=== PATIENT | female | born 1970 | race Asian ===

== ENCOUNTER 2017-08-04 00:37 | Emergency (ER) | payer OTHER, SELFPAY ==
[2017-08-04 00:47] VITALS: BP 131/88; PULSE 70; RESP 16; TEMP 36.4; O2SAT 99; BMI 23.6
--- NOTE | 2017-08-04 00:56 | ED.WOUNDLAC ---
HPI - Wound/Laceration General Chief Complaint: Wound/Laceration Stated Complaint: right hand swelling infected blister Time Seen by Provider: 08/04/17 00:42 Source: patient Mode of arrival: ambulatory Limitations: no limitations History of Present Illness HPI narrative: 47-year-old female here for evaluation of possible infection on her hand. Patient states that she had a wart on the dorsum of her right hand and used a [id number] salicylic acid preparation. She states that afterwards a blister formed. She states that blister that popped and then this evening at approximately 10 o'clock she noticed that the area around the blister was read and unit started to streak upper arm. Related Data Previous Rx's Medication Instructions Recorded doxycycline hyclate 100 mg PO BID 7 Days #14 tab 08/04/17 Allergies Allergy/AdvReac Type Severity Reaction Status Date / Time No Known Drug Allergies Allergy Verified 08/04/17 00:58 Review of Systems Musculoskeletal Comments: No right hand right wrist right elbow pain Integumentary/Breasts Comments: Blistering on the back of the right hand with streaking up the arm Neurologic Comments: No sensation changes to the right upper extremity Hematologic/Lymphatic Denies easy bruising Allergic/Immunologic Denies urticaria PFSH Social History Smoking Status: Never smoker Exam Initial Vital Signs Initial Vital Signs: Vital Signs Temperature 97.5 F L 08/04/17 00:47 Pulse Rate 70 08/04/17 00:47 Respiratory Rate 16 08/04/17 00:47 Blood Pressure 131/88 H 08/04/17 00:47 Pulse Oximetry 99 08/04/17 00:47 Cardio Pulses: radial pulses present on the right Skin Other: Patient with a approximately 1 cm round blister on the dorsum of the right hand over the MCP joint of the ring finger. Patient with a 5 cm area of redness surrounding this with streaking that extends up the arm to just proximal to the elbow. Neuro General: moves all extremities and no focal motor deficits Sensory Exam: no sensory deficits noted Extrem General: capillary refill normal Course Orders Ordered: Discontinued Medications Doxycycline Hyclate (Vibramycin) 100 mg PO NOW ONE Stop: 08/04/17 00:57 Last Admin: 08/04/17 01:00 Dose: 100 mg Vital Signs - 8 hr 08/04/17 00:47 Temperature 97.5 F L Pulse Rate 70 Respiratory Rate 16 Blood Pressure 131/88 H Pulse Oximetry 99 MDM - Wound/Laceration MDM Narrative Medical decision making narrative: Patient is not toxic appearing. Neurovascularly intact. Does have physical exam is concerning for cellulitis that is started to streak up her arm. The patient denies any allergies to medicines. Physical exam is not consistent with an abscess currently. Patient was given an oral dose of doxycycline here in the emergency department and a prescription for doxycycline to start taking tomorrow. The area of redness was outlined with a skin marker. Patient was informed that if it started to extend past this that she needed to return to the emergency department. Her was at bedside for the discussion. They both expressed understanding and agreement with plan. Discharge Plan Departure Patient Disposition: Home, Self-Care Clinical Impression: Cellulitis Discharge Date/Time: 08/04/17 01:08 Interventions: ED Discharge Assessment Last Done: 08/04/17 01:07 Instructions: DI for Cellulitis -- Adult Activity Restrictions/Additional Instructions: Take all the medications as directed. You can wash your hand like normal using soap and water. Recommend that you do not soak your hand and anything until the wound is healed. If the redness starts to expand outside of the markings that we made here in the emergency department you do need to return for further evaluation. Call your primary doctor for a follow-up Prescriptions: New doxycycline hyclate 100 mg tablet 100 mg PO BID 7 Days Qty: 14 RF: 0
[2017-08-04] MEDS: DOXYCYCLINE HYCLATE 100 MG TABLET PO (01:00)
--- NOTE | 2017-08-04 01:02 | PC.NURSE ---
Pt reports she had a wart on right 4th knuckle. Open wound, small amt bleeding. Area reddened and swollen, red streak extending up arm to elbow. Margins marked by Dr. Hernandez
== END 2017-08-04 01:08 | disposition home or self-care (01) ==
PROVIDERS: Emergency Provider Emergency Medicine
DX: L03.113 Cellulitis of right upper limb (principal)
CPT/HCPCS: 99283

== ENCOUNTER 2018-03-13 11:21 | Emergency (ER) | payer OTHER, SELFPAY ==
[2018-03-13 11:27] VITALS: PULSE 69; RESP 16; TEMP 36.8; O2SAT 100; BMI 22.6
[2018-03-13 12:00] VITALS: BP 133/81; PULSE 95; RESP 16
--- NOTE | 2018-03-13 12:07 | DI.RAD.S_ITS ---
PROCEDURE: XR CHEST 1V INDICATIONS: chest pain TECHNIQUE: One view of the chest was acquired. COMPARISON: [facility], , CHEST 1 VIEW, 06/28/2015, 13:39. FINDINGS: Surgical changes and devices: None. Lungs and pleura: No pleural effusions or pneumothorax. Lungs are clear. Previously seen rounded nodule at the right lung base has resolved. A nipple shadow overlying the left base appears to be present. Mediastinum: Mediastinal contours appear normal. Heart size is normal. Bones and chest wall: No suspicious bony lesions. Overlying soft tissues appear unremarkable. IMPRESSION: Negative chest. No acute cardiopulmonary process is evident. Dictated by: Alex Wang M.D. on 03/13/2018 at 11:25 Approved by: lAex Wang M.D. on 03/13/2018 at 11:29
[2018-03-13 12:13] LABS: Add Manual Diff / Slide Review NO; Basophils Absolute Auto 0 /uL (0-100); Basophils Percent Auto 0.7 % (0-2); Eosinophils Absolute Auto 200 /uL (0-450); Eosinophils Percent Auto 3.3 % (2-4); Hematocrit 35.3 % (36-46); Hemoglobin 11.2 g/dL (12.0-16.0); Lymphocytes Absolute Auto 1500 /uL (1100-4500); Lymphocytes Percent Auto 28.3 % (25-40); Mean Corpuscular HGB Conc 31.7 % (30-36); Mean Corpuscular Hemoglobin 24.5 PG (26-34); Mean Corpuscular Volume 77.2 fL (80-100); Monocytes Absolute Auto 500 /uL (0-900); Monocytes Percent Auto 9.1 % (3-14); Neutrophils Absolute Auto 3200 /uL (1500-7000); Neutrophils Percent Auto 58.6 % (50-75); Platelet Count 217 X10^3/uL (150-400); Red Blood Cell Count 4.57 X10^6/uL (4.0-5.2); Red Cell Distribution Width 16.6 % (11.6-14.8); White Blood Cell Count 5.4 X10^3/uL (4.5-11.0)
[2018-03-13 12:18] LABS: D Dimer 277 ng/mL (<230)
[2018-03-13 12:20] LABS: Alanine Aminotransferase 23 IU/L (9-52); Albumin 4.3 g/dL (3.5-5.0); Albumin Globulin Ratio 1.4 (1.0-2.8); Alkaline Phosphatase 57 U/L (38-126); Aspartate Aminotransferase 15 IU/L (14-36); Bilirubin Total 0.3 mg/dL (0.2-1.3); Blood Urea Nitrogen 8 mg/dL (7-17); Calcium 9.2 mg/dL (8.4-10.2); Carbon Dioxide 27 mmol/L (22-32); Chloride 103 mmol/L (98-107); Creatine Kinase 42 U/L (30-135); Estimated Glomerular Filt Rate > 60.0 mL/min (>60); Globulin 3.1 g/dL (1.7-4.1); Glucose 87 mg/dL (70-100); HEMOLYSIS < 15 (0-50); Lipase 68 U/L (23-300); Sodium 138 mmol/L (137-145); Total Protein 7.4 g/dL (6.3-8.2)
--- NOTE | 2018-03-13 12:28 | ED.CHESTPAIN ---
HPI - Chest Pain <Cande Knowles PA-C - Last Filed: 03/13/18 21:21> General Chief Complaint: Chest Pain Stated Complaint: chest pain Time Seen by Provider: 03/13/18 11:27 Source: patient and family Mode of arrival: ambulatory Limitations: no limitations History of Present Illness HPI narrative: This 48-year-old female comes to ED due to 5 day history of chest pain. She states that her was seen here that day and transferred to [facility] after having a 2nd UT. She thinks it started while she was here, but pain has not been so bothersome that she can't ignore it. She states that pain has been waxing and waning, last for 20 min, then seems to resolve on its own. She states pain does not keep her from sleep. She is always active, and pain does not keep her from activity, no worse with activity. She has a history of reflux and did try Zantac which did not help. She thinks that a warm bath did help somewhat. She came in today because the pain has been more constant, states it was more severe earlier, now significantly improved but still there. She states that the pain is in the middle of her chest, sometimes she can feel it in her back or shoulder area, points more to the right side. She denies any recent illness, cough, dyspnea. She has had minimal nausea today, no vomiting. She has not had any new pain or swelling in her extremities. She has never been a smoker. She did take a long car trip back from [place] but returned almost 2 weeks ago and did not have any symptoms in the interim. She does not have any history blood clots nor family history. She denies possibility of . She denies any other exacerbating or alleviating features for pain aside from the hot bath helping. Related Data Allergies Allergy/AdvReac Type Severity Reaction Status Date / Time No Known Drug Allergies Allergy Verified 03/13/18 11:26 Exam <Cande Knowles PA-C - Last Filed: 03/13/18 21:21> Narrative Exam Narrative: GENERAL APPEARANCE: Patient sitting comfortably, in no distress. HEENT: PERRL, EOMI, normal oropharynx NECK/THYROID: Neck supple, no JVD. LUNGS: Clear to auscultation bilaterally. CHEST: No tenderness to palpation over the chest wall or sternum HEART: Regular rate and rhythm without murmur, normal S1, S2, no S3 or S4. ABDOMEN: Soft, NT, ND, + BS x 4 quadrants EXTREMITIES: No edema. No calf tenderness NEUROLOGIC: Alert and oriented, normal speech and coordination. Initial Vital Signs Initial Vital Signs: Vital Signs Temperature 98.2 F 03/13/18 11:27 Pulse Rate 69 03/13/18 11:27 Respiratory Rate 16 03/13/18 11:27 Pulse Oximetry 100 03/13/18 11:27 <Matthew Ford DO - Last Filed: 03/14/18 08:23> Initial Vital Signs Initial Vital Signs: Vital Signs Temperature 98.2 F 03/13/18 11:27 Pulse Rate 69 03/13/18 11:27 Respiratory Rate 16 03/13/18 11:27 Pulse Oximetry 100 03/13/18 11:27 Course <Cande Knowles PA-C - Last Filed: 03/13/18 21:21> Additional Information: The patient is feeling improved after GI cocktail. She has not had recurrent significant chest pain while here and this had already improved but was still present at the time I saw her. Pain is atypical for cardiac pain. Reviewed findings with attending Dr. Ford who agrees given patient's pain pattern, normal appearance and vital signs as well as exam that further workup such as PE study is not needed currently. Reviewed with patient and her need to return if acutely worsening or new symptoms while awaiting follow-up and they are agreeable. Orders Ordered: Discontinued Medications Al Hydrox/Mg Hydrox/Simethicone 20 ml/ Lidocaine HCl 15 ml 0 ml PO NOW ONE Stop: 03/13/18 12:44 Last Admin: 03/13/18 13:49 Dose: 20 ml Vital Signs - 8 hr 03/13/18 13:30 03/13/18 14:00 Pulse Rate 68 68 Respiratory Rate 14 12 Blood Pressure [Left Arm] 135/88 120/82 Pulse Oximetry 100 100 <Matthew Ford DO - Last Filed: 03/14/18 08:23> Orders Ordered: Discontinued Medications Al Hydrox/Mg Hydrox/Simethicone 20 ml/ Lidocaine HCl 15 ml 0 ml PO NOW ONE Stop: 03/13/18 12:44 Last Admin: 03/13/18 13:49 Dose: 20 ml Vital Signs - 8 hr 03/13/18 13:30 03/13/18 14:00 Pulse Rate 68 68 Respiratory Rate 14 12 Blood Pressure [Left Arm] 135/88 120/82 Pulse Oximetry 100 100 MDM - Chest Pain <Cande Knowles PA-C - Last Filed: 03/13/18 21:21> Lab Data Result diagrams: 03/13/18 11:45 03/13/18 11:45 Lab Results 03/13/18 03/13/18 03/13/18 Range/Units 11:45 11:45 11:45 WBC 5.4 (4.5-11.0) X10^3/uL RBC 4.57 (4.0-5.2) X10^6/uL Hgb 11.2 L (12.0-16.0) g/dL Hct 35.3 L (36-46) % MCV 77.2 L (80-100) fL MCH 24.5 L (26-34) PG MCHC 31.7 (30-36) % RDW 16.6 H (11.6-14.8) % Plt Count 217 (150-400) X10^3/uL Neut % (Auto) 58.6 (50-75) % Lymph % (Auto) 28.3 (25-40) % [place] % (Auto) 9.1 (3-14) % Eos % (Auto) 3.3 (2-4) % Baso % (Auto) 0.7 (0-2) % Neut # (Auto) 3200 (9233-9827) /uL Lymph # (Auto) 1500 (6583-0870) /uL [place] # (Auto) 500 (0-900) /uL Eos # (Auto) 200 (0-450) /uL Baso # (Auto) 0 (0-100) /uL D-Dimer 277 H (<230) ng/mL Sodium 138 (137-145) mmol/L Potassium 4.0 (3.4-5.1) mmol/L Chloride 103 (98-107) mmol/L Carbon Dioxide 27 (22-32) mmol/L BUN 8 (7-17) mg/dL Creatinine 0.50 L (0.52-1.04) mg/dL Estimated GFR > 60.0 (>60) mL/min BUN/Creatinine Ratio 16.0 (6-22) Glucose 87 (70-100) mg/dL Calcium 9.2 (8.4-10.2) mg/dL Total Bilirubin 0.3 (0.2-1.3) mg/dL AST 15 (14-36) IU/L ALT 23 (9-52) IU/L Alkaline Phosphatase 57 (38-126) U/L Total Creatine Kinase 42 (30-135) U/L CK-MB (CK-2) TNP CK-MB (CK-2) Rel Index TNP Troponin I < 0.012 (0.01-0.034) ng/mL Total Protein 7.4 (6.3-8.2) g/dL Albumin 4.3 (3.5-5.0) g/dL Globulin 3.1 (1.7-4.1) g/dL Albumin/Globulin Ratio 1.4 (1.0-2.8) Lipase 68 (23-300) U/L 03/13/18 Range/Units Unknown WBC (4.5-11.0) X10^3/uL RBC (4.0-5.2) X10^6/uL Hgb (12.0-16.0) g/dL Hct (36-46) % MCV (80-100) fL MCH (26-34) PG MCHC (30-36) % RDW (11.6-14.8) % Plt Count (150-400) X10^3/uL Neut % (Auto) (50-75) % Lymph % (Auto) (25-40) % [place] % (Auto) (3-14) % Eos % (Auto) (2-4) % Baso % (Auto) (0-2) % Neut # (Auto) (3346-4101) /uL Lymph # (Auto) (8348-7729) /uL [place] # (Auto) (0-900) /uL Eos # (Auto) (0-450) /uL Baso # (Auto) (0-100) /uL D-Dimer (<230) ng/mL Sodium (137-145) mmol/L Potassium (3.4-5.1) mmol/L Chloride (98-107) mmol/L Carbon Dioxide (22-32) mmol/L BUN (7-17) mg/dL Creatinine (0.52-1.04) mg/dL Estimated GFR (>60) mL/min BUN/Creatinine Ratio (6-22) Glucose (70-100) mg/dL Calcium (8.4-10.2) mg/dL Total Bilirubin (0.2-1.3) mg/dL AST (14-36) IU/L ALT (9-52) IU/L Alkaline Phosphatase (38-126) U/L Total Creatine Kinase (30-135) U/L CK-MB (CK-2) CK-MB (CK-2) Rel Index Troponin I (0.01-0.034) ng/mL Total Protein (6.3-8.2) g/dL Albumin (3.5-5.0) g/dL Globulin (1.7-4.1) g/dL Albumin/Globulin Ratio (1.0-2.8) Lipase 69 (23-300) U/L Point of Care Testing Test Results Negative Urine Dip Bedside Urine Glucose Negative Bedside Urine Bilirubin - Negative Bedside Urine Ketone - Negative Urine Specific [place] 1.015 Bedside Urine Occult Blood - Negative Bedside Urine pH 6.5 Bedside Urine Protein - Negative Bedside Urine Urobilinogen - Negative Bedside Urine Nitrite - Negative Bedside Urine Leukocytes - Negative Esterase ECG Data Attestation: I personally reviewed and interpreted this ECG as follows: (NSR, rate 66, normal axis) Prior ECG tracings: not available for review <Matthew Ford DO - Last Filed: 03/14/18 08:23> Lab Data Lab Results 03/13/18 03/13/18 03/13/18 Range/Units 11:45 11:45 11:45 WBC 5.4 (4.5-11.0) X10^3/uL RBC 4.57 (4.0-5.2) X10^6/uL Hgb 11.2 L (12.0-16.0) g/dL Hct 35.3 L (36-46) % MCV 77.2 L (80-100) fL MCH 24.5 L (26-34) PG MCHC 31.7 (30-36) % RDW 16.6 H (11.6-14.8) % Plt Count 217 (150-400) X10^3/uL Neut % (Auto) 58.6 (50-75) % Lymph % (Auto) 28.3 (25-40) % [place] % (Auto) 9.1 (3-14) % Eos % (Auto) 3.3 (2-4) % Baso % (Auto) 0.7 (0-2) % Neut # (Auto) 3200 (4516-6182) /uL Lymph # (Auto) 1500 (8724-5850) /uL [place] # (Auto) 500 (0-900) /uL Eos # (Auto) 200 (0-450) /uL Baso # (Auto) 0 (0-100) /uL D-Dimer 277 H (<230) ng/mL Sodium 138 (137-145) mmol/L Potassium 4.0 (3.4-5.1) mmol/L Chloride 103 (98-107) mmol/L Carbon Dioxide 27 (22-32) mmol/L BUN 8 (7-17) mg/dL Creatinine 0.50 L (0.52-1.04) mg/dL Estimated GFR > 60.0 (>60) mL/min BUN/Creatinine Ratio 16.0 (6-22) Glucose 87 (70-100) mg/dL Calcium 9.2 (8.4-10.2) mg/dL Total Bilirubin 0.3 (0.2-1.3) mg/dL AST 15 (14-36) IU/L ALT 23 (9-52) IU/L Alkaline Phosphatase 57 (38-126) U/L Total Creatine Kinase 42 (30-135) U/L CK-MB (CK-2) TNP CK-MB (CK-2) Rel Index TNP Troponin I < 0.012 (0.01-0.034) ng/mL Total Protein 7.4 (6.3-8.2) g/dL Albumin 4.3 (3.5-5.0) g/dL Globulin 3.1 (1.7-4.1) g/dL Albumin/Globulin Ratio 1.4 (1.0-2.8) Lipase 68 (23-300) U/L 03/13/18 Range/Units Unknown WBC (4.5-11.0) X10^3/uL RBC (4.0-5.2) X10^6/uL Hgb (12.0-16.0) g/dL Hct (36-46) % MCV (80-100) fL MCH (26-34) PG MCHC (30-36) % RDW (11.6-14.8) % Plt Count (150-400) X10^3/uL Neut % (Auto) (50-75) % Lymph % (Auto) (25-40) % [place] % (Auto) (3-14) % Eos % (Auto) (2-4) % Baso % (Auto) (0-2) % Neut # (Auto) (0293-7500) /uL Lymph # (Auto) (8272-0793) /uL [place] # (Auto) (0-900) /uL Eos # (Auto) (0-450) /uL Baso # (Auto) (0-100) /uL D-Dimer (<230) ng/mL Sodium (137-145) mmol/L Potassium (3.4-5.1) mmol/L Chloride (98-107) mmol/L Carbon Dioxide (22-32) mmol/L BUN (7-17) mg/dL Creatinine (0.52-1.04) mg/dL Estimated GFR (>60) mL/min BUN/Creatinine Ratio (6-22) Glucose (70-100) mg/dL Calcium (8.4-10.2) mg/dL Total Bilirubin (0.2-1.3) mg/dL AST (14-36) IU/L ALT (9-52) IU/L Alkaline Phosphatase (38-126) U/L Total Creatine Kinase (30-135) U/L CK-MB (CK-2) CK-MB (CK-2) Rel Index Troponin I (0.01-0.034) ng/mL Total Protein (6.3-8.2) g/dL Albumin (3.5-5.0) g/dL Globulin (1.7-4.1) g/dL Albumin/Globulin Ratio (1.0-2.8) Lipase 69 (23-300) U/L Point of Care Testing Test Results Negative Urine Dip Bedside Urine Glucose Negative Bedside Urine Bilirubin - Negative Bedside Urine Ketone - Negative Urine Specific [place] 1.015 Bedside Urine Occult Blood - Negative Bedside Urine pH 6.5 Bedside Urine Protein - Negative Bedside Urine Urobilinogen - Negative Bedside Urine Nitrite - Negative Bedside Urine Leukocytes - Negative Esterase Discharge Plan Departure Patient Disposition: Home Clinical Impression: Atypical chest pain Discharge Date/Time: 03/13/18 14:49 Interventions: ED Discharge Assessment Last Done: 03/13/18 14:49 Instructions: DI for Atypical Chest Pain Activity Restrictions/Additional Instructions: Please return as we talked about if you have acutely worsening or persistent pain, or new symptoms such as difficulty breathing, nausea, dizziness, or fever. Please continue your 150 mg ranitidine twice daily (regardless of whether you have symptoms) for now, as this may help if there is an acid reflux component to your pain. Also please warp picker some liquid antacid such as Maalox or Mylanta and take this when you have symptoms to see if it is helpful. Also please start Aleve (naproxen) [id number] anti-inflammatory/pain reliever 1 tablet twice daily as this may be helpful if there is a muscular or rib component to your pain. Please continue these medicines until you follow up with your primary care provider, which you should do early next week as you may need further testing depending upon whether they are helpful. Referrals: [facility] [Provider Group] <Matthew Ford DO - Last Filed: 03/14/18 08:23> Cosign ED Attending Vikas Attestation: I was immediately available in the department for consultation. Documentation has been reviewed. I agree with assessment and plan.
[2018-03-13 12:35] LABS: Troponin I < 0.012 ng/mL (0.01-0.034)
[2018-03-13 12:37] VITALS: BP 133/81; PULSE 76; RESP 16; O2SAT 100
--- NOTE | 2018-03-13 12:48 | ED_ITS ---
HPI - Chest Pain <Cande Knowles PA-C - Last Filed: 03/13/18 21:21> General Chief Complaint: Chest Pain Stated Complaint: chest pain Time Seen by Provider: 03/13/18 11:27 Source: patient and family Mode of arrival: ambulatory Limitations: no limitations History of Present Illness HPI narrative: This 48-year-old female comes to ED due to 5 day history of chest pain. She states that her was seen here that day and transferred to [facility] after having a 2nd IA. She thinks it started while she was here, but pain has not been so bothersome that she can't ignore it. She states that pain has been waxing and waning, last for 20 min, then seems to resolve on its own. She states pain does not keep her from sleep. She is always active, and pain does not keep her from activity, no worse with activity. She has a history of reflux and did try Zantac which did not help. She thinks that a warm bath did help somewhat. She came in today because the pain has been more constant, states it was more severe earlier, now significantly improved but still there. She states that the pain is in the middle of her chest, sometimes she can feel it in her back or shoulder area, points more to the right side. She denies any recent illness, cough, dyspnea. She has had minimal nausea today, no vomiting. She has not had any new pain or swelling in her extremities. She has never been a smoker. She did take a long car trip back from [place] but returned almost 2 weeks ago and did not have any symptoms in the interim. She does not have any history blood clots nor family history. She denies possibility of . She denies any other exacerbating or alleviating features for pain aside from the hot bath helping. Related Data Allergies Allergy/AdvReac Type Severity Reaction Status Date / Time No Known Drug Allergies Allergy Verified 03/13/18 11:26 Exam <Cande Knowles PA-C - Last Filed: 03/13/18 21:21> Narrative Exam Narrative: GENERAL APPEARANCE: Patient sitting comfortably, in no distress. HEENT: PERRL, EOMI, normal oropharynx NECK/THYROID: Neck supple, no JVD. LUNGS: Clear to auscultation bilaterally. CHEST: No tenderness to palpation over the chest wall or sternum HEART: Regular rate and rhythm without murmur, normal S1, S2, no S3 or S4. ABDOMEN: Soft, NT, ND, + BS x 4 quadrants EXTREMITIES: No edema. No calf tenderness NEUROLOGIC: Alert and oriented, normal speech and coordination. Initial Vital Signs Initial Vital Signs: Vital Signs Temperature 98.2 F 03/13/18 11:27 Pulse Rate 69 03/13/18 11:27 Respiratory Rate 16 03/13/18 11:27 Pulse Oximetry 100 03/13/18 11:27 <Matthew Ford DO - Last Filed: 03/14/18 08:23> Initial Vital Signs Initial Vital Signs: Vital Signs Temperature 98.2 F 03/13/18 11:27 Pulse Rate 69 03/13/18 11:27 Respiratory Rate 16 03/13/18 11:27 Pulse Oximetry 100 03/13/18 11:27 Course <Cande Knowles PA-C - Last Filed: 03/13/18 21:21> Additional Information: The patient is feeling improved after GI cocktail. She has not had recurrent significant chest pain while here and this had already improved but was still present at the time I saw her. Pain is atypical for cardiac pain. Reviewed findings with attending Dr. Ford who agrees given patient's pain pattern, normal appearance and vital signs as well as exam that further workup such as PE study is not needed currently. Reviewed with patient and her need to return if acutely worsening or new symptoms while awaiting follow-up and they are agreeable. Orders Ordered: Discontinued Medications Al Hydrox/Mg Hydrox/Simethicone 20 ml/ Lidocaine HCl 15 ml 0 ml PO NOW ONE Stop: 03/13/18 12:44 Last Admin: 03/13/18 13:49 Dose: 20 ml Vital Signs - 8 hr 03/13/18 13:30 03/13/18 14:00 Pulse Rate 68 68 Respiratory Rate 14 12 Blood Pressure [Left Arm] 135/88 120/82 Pulse Oximetry 100 100 <Matthew Ford DO - Last Filed: 03/14/18 08:23> Orders Ordered: Discontinued Medications Al Hydrox/Mg Hydrox/Simethicone 20 ml/ Lidocaine HCl 15 ml 0 ml PO NOW ONE Stop: 03/13/18 12:44 Last Admin: 03/13/18 13:49 Dose: 20 ml Vital Signs - 8 hr 03/13/18 13:30 03/13/18 14:00 Pulse Rate 68 68 Respiratory Rate 14 12 Blood Pressure [Left Arm] 135/88 120/82 Pulse Oximetry 100 100 MDM - Chest Pain <Cande Knowles PA-C - Last Filed: 03/13/18 21:21> Lab Data Result diagrams: 03/13/18 11:45 03/13/18 11:45 Lab Results 03/13/18 03/13/18 03/13/18 Range/Units 11:45 11:45 11:45 WBC 5.4 (4.5-11.0) X10^3/uL RBC 4.57 (4.0-5.2) X10^6/uL Hgb 11.2 L (12.0-16.0) g/dL Hct 35.3 L (36-46) % MCV 77.2 L (80-100) fL MCH 24.5 L (26-34) PG MCHC 31.7 (30-36) % RDW 16.6 H (11.6-14.8) % Plt Count 217 (150-400) X10^3/uL Neut % (Auto) 58.6 (50-75) % Lymph % (Auto) 28.3 (25-40) % [place] % (Auto) 9.1 (3-14) % Eos % (Auto) 3.3 (2-4) % Baso % (Auto) 0.7 (0-2) % Neut # (Auto) 3200 (5003-4895) /uL Lymph # (Auto) 1500 (5424-1078) /uL [place] # (Auto) 500 (0-900) /uL Eos # (Auto) 200 (0-450) /uL Baso # (Auto) 0 (0-100) /uL D-Dimer 277 H (<230) ng/mL Sodium 138 (137-145) mmol/L Potassium 4.0 (3.4-5.1) mmol/L Chloride 103 (98-107) mmol/L Carbon Dioxide 27 (22-32) mmol/L BUN 8 (7-17) mg/dL Creatinine 0.50 L (0.52-1.04) mg/dL Estimated GFR > 60.0 (>60) mL/min BUN/Creatinine Ratio 16.0 (6-22) Glucose 87 (70-100) mg/dL Calcium 9.2 (8.4-10.2) mg/dL Total Bilirubin 0.3 (0.2-1.3) mg/dL AST 15 (14-36) IU/L ALT 23 (9-52) IU/L Alkaline Phosphatase 57 (38-126) U/L Total Creatine Kinase 42 (30-135) U/L CK-MB (CK-2) TNP CK-MB (CK-2) Rel Index TNP Troponin I < 0.012 (0.01-0.034) ng/mL Total Protein 7.4 (6.3-8.2) g/dL Albumin 4.3 (3.5-5.0) g/dL Globulin 3.1 (1.7-4.1) g/dL Albumin/Globulin Ratio 1.4 (1.0-2.8) Lipase 68 (23-300) U/L 03/13/18 Range/Units Unknown WBC (4.5-11.0) X10^3/uL RBC (4.0-5.2) X10^6/uL Hgb (12.0-16.0) g/dL Hct (36-46) % MCV (80-100) fL MCH (26-34) PG MCHC (30-36) % RDW (11.6-14.8) % Plt Count (150-400) X10^3/uL Neut % (Auto) (50-75) % Lymph % (Auto) (25-40) % Stephenson % (Auto) (3-14) % Eos % (Auto) (2-4) % Baso % (Auto) (0-2) % Neut # (Auto) (3396-2787) /uL Lymph # (Auto) (8922-8885) /uL [place] # (Auto) (0-900) /uL Eos # (Auto) (0-450) /uL Baso # (Auto) (0-100) /uL D-Dimer (<230) ng/mL Sodium (137-145) mmol/L Potassium (3.4-5.1) mmol/L Chloride (98-107) mmol/L Carbon Dioxide (22-32) mmol/L BUN (7-17) mg/dL Creatinine (0.52-1.04) mg/dL Estimated GFR (>60) mL/min BUN/Creatinine Ratio (6-22) Glucose (70-100) mg/dL Calcium (8.4-10.2) mg/dL Total Bilirubin (0.2-1.3) mg/dL AST (14-36) IU/L ALT (9-52) IU/L Alkaline Phosphatase (38-126) U/L Total Creatine Kinase (30-135) U/L CK-MB (CK-2) CK-MB (CK-2) Rel Index Troponin I (0.01-0.034) ng/mL Total Protein (6.3-8.2) g/dL Albumin (3.5-5.0) g/dL Globulin (1.7-4.1) g/dL Albumin/Globulin Ratio (1.0-2.8) Lipase 69 (23-300) U/L Point of Care Testing Test Results Negative Urine Dip Bedside Urine Glucose Negative Bedside Urine Bilirubin - Negative Bedside Urine Ketone - Negative Urine Specific [place] 1.015 Bedside Urine Occult Blood - Negative Bedside Urine pH 6.5 Bedside Urine Protein - Negative Bedside Urine Urobilinogen - Negative Bedside Urine Nitrite - Negative Bedside Urine Leukocytes - Negative Esterase ECG Data Attestation: I personally reviewed and interpreted this ECG as follows: (NSR, rate 66, normal axis) Prior ECG tracings: not available for review <Matthew Ford DO - Last Filed: 03/14/18 08:23> Lab Data Lab Results 03/13/18 03/13/18 03/13/18 Range/Units 11:45 11:45 11:45 WBC 5.4 (4.5-11.0) X10^3/uL RBC 4.57 (4.0-5.2) X10^6/uL Hgb 11.2 L (12.0-16.0) g/dL Hct 35.3 L (36-46) % MCV 77.2 L (80-100) fL MCH 24.5 L (26-34) PG MCHC 31.7 (30-36) % RDW 16.6 H (11.6-14.8) % Plt Count 217 (150-400) X10^3/uL Neut % (Auto) 58.6 (50-75) % Lymph % (Auto) 28.3 (25-40) % Stephenson % (Auto) 9.1 (3-14) % Eos % (Auto) 3.3 (2-4) % Baso % (Auto) 0.7 (0-2) % Neut # (Auto) 3200 (3820-0253) /uL Lymph # (Auto) 1500 (2206-3306) /uL Stephenson # (Auto) 500 (0-900) /uL Eos # (Auto) 200 (0-450) /uL Baso # (Auto) 0 (0-100) /uL D-Dimer 277 H (<230) ng/mL Sodium 138 (137-145) mmol/L Potassium 4.0 (3.4-5.1) mmol/L Chloride 103 (98-107) mmol/L Carbon Dioxide 27 (22-32) mmol/L BUN 8 (7-17) mg/dL Creatinine 0.50 L (0.52-1.04) mg/dL Estimated GFR > 60.0 (>60) mL/min BUN/Creatinine Ratio 16.0 (6-22) Glucose 87 (70-100) mg/dL Calcium 9.2 (8.4-10.2) mg/dL Total Bilirubin 0.3 (0.2-1.3) mg/dL AST 15 (14-36) IU/L ALT 23 (9-52) IU/L Alkaline Phosphatase 57 (38-126) U/L Total Creatine Kinase 42 (30-135) U/L CK-MB (CK-2) TNP CK-MB (CK-2) Rel Index TNP Troponin I < 0.012 (0.01-0.034) ng/mL Total Protein 7.4 (6.3-8.2) g/dL Albumin 4.3 (3.5-5.0) g/dL Globulin 3.1 (1.7-4.1) g/dL Albumin/Globulin Ratio 1.4 (1.0-2.8) Lipase 68 (23-300) U/L 03/13/18 Range/Units Unknown WBC (4.5-11.0) X10^3/uL RBC (4.0-5.2) X10^6/uL Hgb (12.0-16.0) g/dL Hct (36-46) % MCV (80-100) fL MCH (26-34) PG MCHC (30-36) % RDW (11.6-14.8) % Plt Count (150-400) X10^3/uL Neut % (Auto) (50-75) % Lymph % (Auto) (25-40) % Stephenson % (Auto) (3-14) % Eos % (Auto) (2-4) % Baso % (Auto) (0-2) % Neut # (Auto) (9896-0908) /uL Lymph # (Auto) (0212-8912) /uL Stephenson # (Auto) (0-900) /uL Eos # (Auto) (0-450) /uL Baso # (Auto) (0-100) /uL D-Dimer (<230) ng/mL Sodium (137-145) mmol/L Potassium (3.4-5.1) mmol/L Chloride (98-107) mmol/L Carbon Dioxide (22-32) mmol/L BUN (7-17) mg/dL Creatinine (0.52-1.04) mg/dL Estimated GFR (>60) mL/min BUN/Creatinine Ratio (6-22) Glucose (70-100) mg/dL Calcium (8.4-10.2) mg/dL Total Bilirubin (0.2-1.3) mg/dL AST (14-36) IU/L ALT (9-52) IU/L Alkaline Phosphatase (38-126) U/L Total Creatine Kinase (30-135) U/L CK-MB (CK-2) CK-MB (CK-2) Rel Index Troponin I (0.01-0.034) ng/mL Total Protein (6.3-8.2) g/dL Albumin (3.5-5.0) g/dL Globulin (1.7-4.1) g/dL Albumin/Globulin Ratio (1.0-2.8) Lipase 69 (23-300) U/L Point of Care Testing Test Results Negative Urine Dip Bedside Urine Glucose Negative Bedside Urine Bilirubin - Negative Bedside Urine Ketone - Negative Urine Specific [place] 1.015 Bedside Urine Occult Blood - Negative Bedside Urine pH 6.5 Bedside Urine Protein - Negative Bedside Urine Urobilinogen - Negative Bedside Urine Nitrite - Negative Bedside Urine Leukocytes - Negative Esterase Discharge Plan Departure Patient Disposition: Home Clinical Impression: Atypical chest pain Discharge Date/Time: 03/13/18 14:49 Interventions: ED Discharge Assessment Last Done: 03/13/18 14:49 Instructions: DI for Atypical Chest Pain Activity Restrictions/Additional Instructions: Please return as we talked about if you have acutely worsening or persistent pain, or new symptoms such as difficulty breathing, nausea, dizziness, or fever. Please continue your 150 mg ranitidine twice daily (regardless of whether you have symptoms) for now, as this may help if there is an acid reflux component to your pain. 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 Also please start Aleve (naproxen) [id number] anti-inflammatory/pain reliever 1 tablet twice daily as this may be helpful if there is a muscular or rib component to your pain. Please continue these medicines until you follow up with your primary care provider, which you should do early next week as you may need further testing depending upon whether they are helpful. Referrals: [facility] [Provider Group] <Matthew Ford DO - Last Filed: 03/14/18 08:23> Cosign ED Attending Vikas Attestation: I was immediately available in the department for consultation. Documentation has been reviewed. I agree with assessment and plan.
[2018-03-13 12:58] LABS: Lipase 69 U/L (23-300)
[2018-03-13 13:00] VITALS: BP 136/86; PULSE 69; PULSE 71; RESP 14; RESP 15; O2SAT 100
[2018-03-13 13:30] VITALS: BP 135/88; PULSE 68; RESP 14; O2SAT 100
[2018-03-13] MEDS: MAG HYDROX/ALUMINUM/SIMETH SUS 20 ML, LIDOCAINE VISCOUS 2% 15 ML PO (13:49)
--- NOTE | 2018-03-13 13:58 | PC.NURSE ---
pt states feels like a bubble referring to upper abd pain.
[2018-03-13 14:00] VITALS: BP 120/82; PULSE 68; RESP 12; O2SAT 100
== END 2018-03-13 14:49 | disposition home or self-care (01) ==
PROVIDERS: Emergency Provider Internal Medicine
DX: R07.89 Other chest pain (principal)
CPT/HCPCS: 36591; 71045; 80053; 81003; 81025; 82550; 83690; 84484; 85025; 85379; 93005; 93010; 99283; 99285

== ENCOUNTER 2019-12-28 09:28 | Emergency (ER) | payer OTHER, SELFPAY ==
[2019-12-28] VITALS (9 sets, daily range): BP systolic 149–189; BP diastolic 82–91; PULSE 60–77; RESP 15–24; TEMP 36.7; O2SAT 98–100; BMI 21.6
--- NOTE | 2019-12-28 09:38 | DI.RAD.S_ITS ---
PROCEDURE: XR CHEST 1V INDICATIONS: chest pain TECHNIQUE: One view of the chest was acquired. COMPARISON: [facility], CR, XR CHEST 1V, 03/13/2018, 12:09. FINDINGS: Surgical changes and devices: None. Lungs and pleura: Lungs are clear. No pleural effusions or pneumothorax. Mediastinum: Mediastinal contours appear normal. Heart size is normal. Bones and chest wall: No suspicious bony lesions. Overlying soft tissues appear unremarkable. IMPRESSION: No acute cardiopulmonary abnormalities or focal airspace disease. Dictated by: Jamaal Ann M.D. on 12/28/2019 at 9:11 Approved by: Jamaal Ann M.D. on 12/28/2019 at 9:13
[2019-12-28 09:53] LABS: Add Manual Diff / Slide Review NO; Basophils Absolute Auto 0 /uL (0-100); Basophils Percent Auto 0.5 % (0-2); Eosinophils Absolute Auto 100 /uL (0-450); Eosinophils Percent Auto 3.1 % (2-4); Hematocrit 34.7 % (36-46); Hemoglobin 11.2 g/dL (12.0-16.0); Lymphocytes Absolute Auto 1000 /uL (1100-4500); Mean Corpuscular HGB Conc 32.4 % (30-36); Mean Corpuscular Hemoglobin 24.9 PG (26-34); Mean Corpuscular Volume 76.8 fL (80-100); Monocytes Absolute Auto 500 /uL (0-900); Monocytes Percent Auto 13.2 % (3-14); Neutrophils Absolute Auto 2000 /uL (1500-7000); Neutrophils Percent Auto 55.2 % (50-75); Platelet Count 128 X10^3/uL (150-400); Red Blood Cell Count 4.52 X10^6/uL (4.0-5.2); Red Cell Distribution Width 15.8 % (11.6-14.8); White Blood Cell Count 3.6 X10^3/uL (4.5-11.0)
[2019-12-28 09:57] LABS: Prothrombin Time 11.2 SECONDS (10.1-12.7)
--- NOTE | 2019-12-28 09:59 | ED_ITS ---
HPI - Chest Pain General Chief Complaint: Chest Pain Stated Complaint: Chest pain Time Seen by Provider: 12/28/19 09:38 Source: patient Mode of arrival: Ambulatory Limitations: no limitations History of Present Illness HPI narrative: This is a 49-year-old female comes in with complaint of chest pain that started on 12/25, she states it lasted for about an hour and then resolved it was improved by some [place]. She had it returned again this morning lasted about an hour and then resolved and she states that she has similar symptoms currently. She describes it as sort of left upper chest discomfort sort of in the breast area. She also states she has a little bit of muscle tightness or discomfort in her right upper shoulder and indicates behind the AC joint area. She states it does hurt to take a deep breath. She denies any difficulty with breathing otherwise. She denies any fevers, no cold cough or congestion. No nausea, no vomiting, no diaphoresis, no GI or urinary symptoms otherwise. No swelling in her extremities. She has had similar symptoms once in the past when her father in law of a heart attack. She did come to the ER to be evaluated states they found nothing. She denies any other medical issues, no prior surgeries other than x2 and appendectomy. Very remote tobacco use, she drinks alcohol on the weekends 1-2 drinks daily. No illicit. She is and accompanied by her who is in the . She has family history of her father having a hemorrhagic brain bleed, and a grandparent had pancreatic cancer. No known cardiac, pulmonary embolic history. Related Data Home Medications Medication Instructions Recorded Confirmed No Known Home Medications 12/28/19 12/28/19 Allergies Allergy/AdvReac Type Severity Reaction Status Date / Time No Known Drug Allergies Allergy Verified 12/28/19 09:38 Review of Systems Review of Systems ROS Unobtainable: All systems reviewed & are unremarkable except as noted in HPI and below Patient History Medical History GERD (gastroesophageal reflux disease) (Chronic) Surgical History History of (Resolved) Family History (Updated 03/13/18 @ 12:50 by Cande Knowles PA-C) Other Family history non-contributory Social History Smoking Status: Never smoker additional social history: occ ETOH Smoking Status: Never smoker alcohol intake frequency: holidays/special occasions only Substance Use Type: does not use Exam Narrative Exam Narrative: GENERAL: Alert and oriented x three, thing, well-appearing female in mild distress. HEENT: Head normocephalic, atraumatic, EOMI, pupils reactive, face symmetric, moist mucous membranes NECK: Supple, full range of motion CARDIOVASCULAR: Regular rate and rhythm without murmurs, rubs or gallops. No edema in all 4 extremities, no JVD. 2+ pulses bilateral upper extremities. Martina st pain not reproducible upon palpation. No ecchymosis. RESPIRATORY: Breath sounds equal bilaterally, no wheezes rales or rhonchi. ABDOMEN: Soft, nontender. Normoactive bowel sounds all 4 quadrants. No guarding or rebound, rigidity, no mass : No CVA tenderness BACK: No cervical, thoracic or lumbar vertebral point tenderness. Patient has normal range of motion. No bruising, no skin changes. NEUROLOGICAL: Cranial nerves II through XII grossly intact. Moving all extremities SKIN: Warm, dry, no petechiae, no rashes or lesions. Initial Vital Signs Initial Vital Signs: Vital Signs Temperature 98.0 F 12/28/19 09:30 Pulse Rate 77 12/28/19 09:30 Respiratory Rate 18 12/28/19 09:30 Blood Pressure 189/91 H 12/28/19 09:30 Pulse Oximetry 99 12/28/19 09:30 Scores HEART Score Heart Score history: Slightly Suspicious Heart Score EKG: Normal Heart Score Age: 45-64 years old Heart Score risk factors: No known risk factors Heart Score troponin: < or = to normal limit Heart Score Total: 1 PERC Score Age greater than or equal to 50 years: No Heart rate greater than or equal to 100 bpm: No Room Air O2 Sat less than 95%: No Unilateral leg swelling: No Recent trauma or surgery: No Hemoptysis: No Prior PE or DVT: No Hormone Use: No Total PERC Score: 0 Course Orders Ordered: ED Orders 12/28/19 10:15 COVID19 -ED/INPAT/OR/L&D Stat 12/28/19 11:44 EKG-12 Lead Routine 12/28/19 11:45 Troponin & CK Cardiac Panel Stat Discontinued Medications Aspirin (Aspirin Chew) 324 mg PO NOW ONE Stop: 12/28/19 09:39 Last Admin: 12/28/19 10:08 Dose: 324 mg Documented by: BTONER Reevaluation(s) Reevaluation #1: Recheck on patient's symptoms have improved. Discussed plan repeat troponin EKG since initial is negative. Time: 10:50 Vital Signs Vital signs: Vital Signs - 8 hr 12/28/19 11:00 12/28/19 11:30 12/28/19 11:52 Pulse Rate 60 60 62 Respiratory Rate 21 24 Blood Pressure Pulse Oximetry 98 99 100 12/28/19 12:00 12/28/19 12:23 Pulse Rate 60 60 Respiratory Rate 24 18 Blood Pressure 157/82 H 149/91 H Pulse Oximetry 100 99 MDM - Chest Pain Lab Data Attestation: I reviewed the patient's lab results. Result diagrams: 12/28/19 09:45 12/28/19 09:45 Labs: Lab Results 12/28/19 12/28/19 12/28/19 Range/Units 09:45 09:45 09:45 WBC 3.6 L (4.5-11.0) X10^3/uL RBC 4.52 (4.0-5.2) X10^6/uL Hgb 11.2 L (12.0-16.0) g/dL Hct 34.7 L (36-46) % MCV 76.8 L (80-100) fL MCH 24.9 L (26-34) PG MCHC 32.4 (30-36) % RDW 15.8 H (11.6-14.8) % Plt Count 128 L (150-400) X10^3/uL Neut % (Auto) 55.2 (50-75) % Lymph % (Auto) 28.0 (25-40) % [place] % (Auto) 13.2 (3-14) % Eos % (Auto) 3.1 (2-4) % Baso % (Auto) 0.5 (0-2) % Neut # (Auto) 2000 (6682-1590) /uL Lymph # (Auto) 1000 L (7916-2961) /uL [place] # (Auto) 500 (0-900) /uL Eos # (Auto) 100 (0-450) /uL Baso # (Auto) 0 (0-100) /uL PT 11.2 (10.1-12.7) SECONDS INR 1.0 (0.9-1.3) APTT 29 (26.4-36.2) SECONDS D-Dimer (<230) ng/mL Sodium 139 (137-145) mmol/L Potassium 3.6 (3.4-5.1) mmol/L Chloride 104 (98-107) mmol/L Carbon Dioxide 32 (22-32) mmol/L BUN 9 (7-17) mg/dL Creatinine 0.52 (0.52-1.04) mg/dL Estimated GFR > 60.0 (>60) mL/min BUN/Creatinine Ratio 17.3 (6-22) Glucose 101 H (70-100) mg/dL Calcium 8.8 (8.4-10.2) mg/dL Total Bilirubin 0.6 (0.2-1.3) mg/dL AST 17 (14-36) IU/L ALT 12 (<35) IU/L Alkaline Phosphatase 47 (38-126) U/L Total Creatine Kinase 51 (30-135) U/L CK-MB (CK-2) TNP CK-MB (CK-2) Rel Index TNP Troponin I < 0.012 (0.01-0.034) ng/mL Total Protein 7.3 (6.3-8.2) g/dL Albumin 4.3 (3.5-5.0) g/dL Globulin 3.0 (1.7-4.1) g/dL Albumin/Globulin Ratio 1.4 (1.0-2.8) Lipase 57 (23-300) U/L COVID-19 PCR (Negative) 12/28/19 12/28/19 12/28/19 Range/Units 09:45 10:15 11:45 WBC (4.5-11.0) X10^3/uL RBC (4.0-5.2) X10^6/uL Hgb (12.0-16.0) g/dL Hct (36-46) % MCV (80-100) fL MCH (26-34) PG MCHC (30-36) % RDW (11.6-14.8) % Plt Count (150-400) X10^3/uL Neut % (Auto) (50-75) % Lymph % (Auto) (25-40) % [place] % (Auto) (3-14) % Eos % (Auto) (2-4) % Baso % (Auto) (0-2) % Neut # (Auto) (0401-8756) /uL Lymph # (Auto) (8325-3571) /uL [place] # (Auto) (0-900) /uL Eos # (Auto) (0-450) /uL Baso # (Auto) (0-100) /uL PT (10.1-12.7) SECONDS INR (0.9-1.3) APTT (26.4-36.2) SECONDS D-Dimer < 200 (<230) ng/mL Sodium (137-145) mmol/L Potassium (3.4-5.1) mmol/L Chloride (98-107) mmol/L Carbon Dioxide (22-32) mmol/L BUN (7-17) mg/dL Creatinine (0.52-1.04) mg/dL Estimated GFR (>60) mL/min BUN/Creatinine Ratio (6-22) Glucose (70-100) mg/dL Calcium (8.4-10.2) mg/dL Total Bilirubin (0.2-1.3) mg/dL AST (14-36) IU/L ALT (<35) IU/L Alkaline Phosphatase (38-126) U/L Total Creatine Kinase 61 (30-135) U/L CK-MB (CK-2) TNP CK-MB (CK-2) Rel Index TNP Troponin I < 0.012 (0.01-0.034) ng/mL Total Protein (6.3-8.2) g/dL Albumin (3.5-5.0) g/dL Globulin (1.7-4.1) g/dL Albumin/Globulin Ratio (1.0-2.8) Lipase (23-300) U/L COVID-19 PCR Negative (Negative) Imaging Data Chest x-ray: Radiologist's Impression: Praneeth Mejia 49 F [address] [address] XRay Report Signed Patient: Savanah MejiaPrakash#: [id number] : 1970Acct:[id number] Age/Sex: 49 / FDate of Service: 12/28/19 Loc: ED Accession Number: [id number] Procedure: XR chest 1V Ordering Provider: Shelly Aquino D.O. PROCEDURE: XR CHEST 1V INDICATIONS: chest pain TECHNIQUE: One view of the chest was acquired. COMPARISON: [facility], , XR CHEST 1V, 03/13/2018, 12:09. FINDINGS: Surgical changes and devices: None. Lungs and pleura: Lungs are clear. No pleural effusions or pneumothorax. Mediastinum: Mediastinal contours appear normal. Heart size is normal. Bones and chest wall: No suspicious bony lesions. Overlying soft tissues appear unremarkable. IMPRESSION: No acute cardiopulmonary abnormalities or focal airspace disease. Dictated by: Jamaal Ann M.D. on 12/28/2019 at 9:11 Approved by: Jamaal Ann M.D. on 12/28/2019 at 9:13 ECG Data Attestation: I personally reviewed and interpreted this ECG as follows: Prior ECG tracings: available for review Interpretation: Sinus rhythm, rate of 66, DE 125, QRS of 86 and QTC of [address] elevation depression appreciated. Prior EKG from 2019 appears similar. EKG 2. Sinus rhythm, rate of 66, DE 131 QRS 84 and QTC of 407. No ST elevation appreciated. No depression. EKG appears similar to 1st and EKG from 2019 MDM Narrative Medical decision making narrative: Patient comes in today with complaint of chest pain as well as a little bit of right upper thoracic pain. Patient's symptoms have resolved. Heart score is low, chest x-ray, EKG and labs do not show any acute cause of her symptoms today. Discussed with patient would recommend follow up, she does not have any risk factors for cardiac cause at this time. She has had similar symptoms once before when highly stressed and continues to have some stress as her father has been in a ?coma for 2 years? after brain hemorrhage. Discharge Plan Departure Patient Disposition: Home Clinical Impression: Chest pain Qualifiers: Chest pain type: unspecified Qualified Code(s): R07.9 - Chest pain, unspecified Discharge Date/Time: 12/28/19 12:47 Instructions: DI for Chest Pain Activity Restrictions/Additional Instructions: Follow up with your physician if you continue to have symptoms. Return to the emergency department for fevers, new chest pain or shortness of breath, passing out, atypical sweating, persistent nausea or vomiting, swelling her extremities or other new or concerning symptoms. Prescriptions: No Action No Known Home Medications RF: 0
[2019-12-28 10:00] LABS: Alanine Aminotransferase 12 IU/L (<35); Albumin 4.3 g/dL (3.5-5.0); Albumin Globulin Ratio 1.4 (1.0-2.8); Alkaline Phosphatase 47 U/L (38-126); Aspartate Aminotransferase 17 IU/L (14-36); BUN Creatinine Ratio 17.3 (6-22); Bilirubin Total 0.6 mg/dL (0.2-1.3); Blood Urea Nitrogen 9 mg/dL (7-17); Calcium 8.8 mg/dL (8.4-10.2); Carbon Dioxide 32 mmol/L (22-32); Chloride 104 mmol/L (98-107); Creatine Kinase 51 U/L (30-135); Estimated Glomerular Filt Rate > 60.0 mL/min (>60); Glucose 101 mg/dL (70-100); HEMOLYSIS < 15 (0-50); Lipase 57 U/L (23-300); PTT Partial Thromboplastin Tim 29 SECONDS (26.4-36.2); Potassium 3.6 mmol/L (3.4-5.1); Sodium 139 mmol/L (137-145); Total Protein 7.3 g/dL (6.3-8.2)
[2019-12-28] MEDS: ASPIRIN 81 MG CHEW TAB 324 MG PO (10:08)
[2019-12-28 10:12] LABS: Troponin I < 0.012 ng/mL (0.01-0.034)
[2019-12-28 10:26] LABS: D Dimer < 200 ng/mL (<230)
[2019-12-28 11:12] LABS: COVID19 -Nasal RAPID Negative (Negative)
[2019-12-28 12:02] LABS: Creatine Kinase 61 U/L (30-135)
[2019-12-28 12:15] LABS: Troponin I < 0.012 ng/mL (0.01-0.034)
== END 2019-12-28 12:47 | disposition home or self-care (01) ==
PROVIDERS: Emergency Provider Emergency Medicine
DX: R07.9 Chest pain, unspecified (principal); M54.6 Pain in thoracic spine
CPT/HCPCS: 36415; 71045; 80053; 82550; 83690; 84484; 85025; 85379; 85610; 85730; 87635; 93005; 99284

== ENCOUNTER 2021-02-28 09:11 | Emergency (ER) | payer OTHER, SELFPAY ==
[2021-02-28] VITALS (8 sets, daily range): BP systolic 132–171; BP diastolic 83–94; PULSE 63–78; RESP 18–32; TEMP 36.7; O2SAT 98–100
--- NOTE | 2021-02-28 09:23 | DI.RAD.S_ITS ---
PROCEDURE: XR CHEST 1V INDICATIONS: chest pain TECHNIQUE: One view of the chest was acquired. COMPARISON: [facility], CR, XR CHEST 1V, 12/28/2019, 9:41. FINDINGS: Surgical changes and devices: None. Lungs and pleura: Lungs are clear. No pleural effusions or pneumothorax. Mediastinum: Mediastinal contours appear normal. Heart size is normal. Bones and chest wall: No suspicious bony lesions. Overlying soft tissues appear unremarkable. IMPRESSION: No evidence acute pulmonary process. Dictated by: Dayron Porras M.D. on 02/28/2021 at 9:56 Approved by: Dayron Porras M.D. on 02/28/2021 at 9:56
[2021-02-28 09:47] LABS: Hematocrit 34.9 % (36-46); Mean Corpuscular HGB Conc 31.6 % (30-36); Mean Corpuscular Hemoglobin 22.6 PG (26-34); Mean Corpuscular Volume 71.5 fL (80-100); Platelet Count 136 X10^3/uL (150-400); Red Blood Cell Count 4.88 X10^6/uL (4.0-5.2); Red Cell Distribution Width 17.4 % (11.6-14.8); White Blood Cell Count 3.8 X10^3/uL (4.5-11.0)
[2021-02-28 09:48] LABS: Add Manual Diff / Slide Review YES
[2021-02-28 09:57] LABS: Prothrombin Time 11.7 SECONDS (10.1-12.7)
[2021-02-28 10:00] LABS: PTT Partial Thromboplastin Tim 29 SECONDS (26.4-36.2)
[2021-02-28 10:02] LABS: Alanine Aminotransferase 14 IU/L (<35); Albumin 4.5 g/dL (3.5-5.0); Albumin Globulin Ratio 1.5 (1.0-2.8); Alkaline Phosphatase 44 U/L (38-126); Aspartate Aminotransferase 19 IU/L (14-36); BUN Creatinine Ratio 14.1 (6-22); Bilirubin Total 0.7 mg/dL (0.2-1.3); Blood Urea Nitrogen 9 mg/dL (7-17); Calcium 9.3 mg/dL (8.4-10.2); Carbon Dioxide 29 mmol/L (22-32); Chloride 105 mmol/L (98-107); Creatine Kinase 50 U/L (30-135); Estimated Glomerular Filt Rate > 60.0 mL/min (>60); Globulin 3.1 g/dL (1.7-4.1); Glucose 97 mg/dL (70-100); Potassium 3.9 mmol/L (3.4-5.1); Sodium 139 mmol/L (137-145); Total Protein 7.6 g/dL (6.3-8.2)
[2021-02-28 10:03] LABS: HEMOLYSIS < 15 (0-50); Lipase 55 U/L (23-300)
[2021-02-28 10:08] LABS: Anisocytosis 1+; Neutrophils Absolute Manual 1900 /uL (3000-5900); Total Cells Counted 100
[2021-02-28 10:09] LABS: Microcytosis 2+
[2021-02-28 10:12] LABS: Troponin I < 0.012 ng/mL (0.01-0.034)
--- NOTE | 2021-02-28 12:27 | ED_ITS ---
HPI - Chest Pain General Chief Complaint: Chest Pain Stated Complaint: chest pains Time Seen by Provider: 02/28/21 12:27 Source: patient Mode of arrival: Ambulatory Limitations: no limitations History of Present Illness HPI narrative: 51-year-old woman with no significant medical history presents with 3 days of lower chest pain. She describes it as just superior to the epigastric area and radiating under her breast but not including her breast. It has been consistently present for the last 3 days but the last 24 hours it has gotten worse. She does have a sensation that food gets stuck just before goes into her stomach on is not having problems with food staying permanently stuck and having no difficulties at all with liquids. She has been having quite a bit of burping but no overt emesis. She describes a recurrent choking sensation. She has been taking Nexium the past 3 days. She had similar episode about 2 years ago no issues were identified and it essentially resolved. She has intermittent e pisodes of reflux only. She states she did have an upper endoscopy in 2013 (prior to any of these symptoms) that was completely unremarkable. She describes no fever, cough, chills, lower abdominal pain, constipation, diarrhea headaches, dyspnea, orthopnea or chest palpitations. Related Data Home Medications Medication Instructions Recorded Confirmed No Known Home Medications 12/28/19 12/28/19 Allergies Allergy/AdvReac Type Severity Reaction Status Date / Time No Known Drug Allergies Allergy Verified 12/28/19 09:38 Review of Systems Review of Systems Narrative: Remainder of complete review of systems is otherwise unremarkable except for that included in the HPI. Patient History Medical History (Updated 02/28/21 @ 12:46 by Lisa Ellsworth MD) GERD (gastroesophageal reflux disease) Surgical History History of Family History Other Family history non-contributory Social History Smoking Status: Never smoker additional social history: occ ETOH Smoking Status: Never smoker alcohol intake frequency: holidays/special occasions only Substance Use Type: does not use Exam Narrative Exam Narrative: General: Healthy appearing, in no acute distress. Able to give a complete and coherent history. Well-nourished well-developed HEENT: Moist mucous membranes, normal sclera with reactive pupils, Neck: No JVD, supple Respiratory: Lungs are clear to auscultation, no wheezing no rales no rhonchi. Full and symmetrical air movement Cardiac: Regular rate and rhythm no murmurs no bruits Abdomen: Soft, nontender, good bowel tones, no flank pain Skin: Warm and dry, no rashes Neurologic: Grossly neurologically intact with no obvious asymmetries or abnormalities Extremities: No trauma, well perfused Psych: Cooperative, appropriate insight and affect Initial Vital Signs Initial Vital Signs: Vital Signs Temperature 98.1 F 02/28/21 09:16 Pulse Rate 78 02/28/21 09:16 Respiratory Rate 18 02/28/21 09:16 Blood Pressure 171/94 H 02/28/21 09:16 Pulse Oximetry 98 02/28/21 09:16 Course Orders Ordered: ED Orders 02/28/21 09:23 XR chest 1V Stat EKG-12 Lead Stat 02/28/21 09:30 Complete Blood Count AUTO DIFF Stat Comprehensive Metabolic Panel Stat Lipase Stat Magnesium Stat Partial Thromboplastin Time Stat Prothrombin Time INR Stat Troponin & CK Cardiac Panel Stat Discontinued Medications Al Hydrox/Mg Hydrox/Simethicone 20 ml/ Lidocaine HCl 15 ml 0 ml PO NOW ONE Stop: 02/28/21 12:37 Last Admin: 02/28/21 13:20 Dose: 35 ml Documented by: PABLITO Vital Signs Vital signs: Vital Signs - 8 hr 02/28/21 09:16 02/28/21 10:04 02/28/21 10:05 Temperature 98.1 F Pulse Rate 78 73 68 Respiratory Rate 18 Blood Pressure 171/94 H 168/83 H Pulse Oximetry 98 100 100 02/28/21 10:30 02/28/21 11:00 02/28/21 11:30 Temperature Pulse Rate 63 65 63 Respiratory Rate 26 H 23 32 H Blood Pressure 132/84 152/90 H 137/92 H Pulse Oximetry 100 100 100 02/28/21 12:00 Temperature Pulse Rate 63 Respiratory Rate 22 Blood Pressure 139/91 H Pulse Oximetry 100 MDM - Chest Pain Lab Data Result diagrams: 02/28/21 09:30 02/28/21 09:30 Labs: Lab Results 01/04/22 01/04/22 01/04/22 Range/Units 09:30 09:30 09:30 WBC 3.8 L (4.5-11.0) X10^3/uL RBC 4.88 (4.0-5.2) X10^6/uL Hgb 11.0 L (12.0-16.0) g/dL Hct 34.9 L (36-46) % MCV 71.5 L (80-100) fL MCH 22.6 L (26-34) PG MCHC 31.6 (30-36) % RDW 17.4 H (11.6-14.8) % Plt Count 136 L (150-400) X10^3/uL Neut % (Auto) Not Reportable Lymph % (Auto) Not Reportable Greene % (Auto) Not Reportable Eos % (Auto) Not Reportable Baso % (Auto) Not Reportable Lymph # (Auto) Not Reportable Greene # (Auto) Not Reportable Baso # (Auto) Not Reportable Total Counted 100 Seg Neutrophils % 50.0 (38-70) % Lymphocytes % (Manual) 30.0 (25-45) % Atypical Lymphs % 9.0 H ( - 0) % Eosinophils % (Manual) 5.0 H (2-4) % Basophils % (Manual) 6.0 H (0-1) % Neutrophils # (Manual) 1900 L (1888-4525) /uL RBC Morphology Not Reportable Anisocytosis 1+ H Microcytosis 2+ H PT 11.7 (10.1-12.7) SECONDS INR 1.0 (0.9-1.3) APTT 29 (26.4-36.2) SECONDS Sodium 139 (137-145) mmol/L Potassium 3.9 (3.4-5.1) mmol/L Chloride 105 (98-107) mmol/L Carbon Dioxide 29 (22-32) mmol/L BUN 9 (7-17) mg/dL Creatinine 0.64 (0.52-1.04) mg/dL Estimated GFR > 60.0 (>60) mL/min BUN/Creatinine Ratio 14.1 (6-22) Glucose 97 (70-100) mg/dL Calcium 9.3 (8.4-10.2) mg/dL Magnesium 2.0 (1.6-2.3) mg/dL Total Bilirubin 0.7 (0.2-1.3) mg/dL AST 19 (14-36) IU/L ALT 14 (<35) IU/L Alkaline Phosphatase 44 (38-126) U/L Total Creatine Kinase 50 (30-135) U/L CK-MB (CK-2) TNP CK-MB (CK-2) Rel Index TNP Troponin I < 0.012 (0.01-0.034) ng/mL Total Protein 7.6 (6.3-8.2) g/dL Albumin 4.5 (3.5-5.0) g/dL Globulin 3.1 (1.7-4.1) g/dL Albumin/Globulin Ratio 1.5 (1.0-2.8) Lipase 55 (23-300) U/L Imaging Data Chest x-ray: Radiologist's Impression: FINDINGS:? ? Surgical changes and devices:? None.? ? Lungs and pleura:? Lungs are clear.? No pleural effusions or pneumothorax.? ? Mediastinum:? Mediastinal contours appear normal.? Heart size is normal.? ? Bones and chest wall:? No suspicious bony lesions.? Overlying soft tissues appear unremarkable.? ? IMPRESSION:? No evidence acute pulmonary process. ? ? ? Dictated by: Dayron Porras M.D. on 02/28/2021 at 9:56 ? ? ECG Data Interpretation: Sinus rhythm at a rate of 62 No acute ischemic changes Normal intervals, normal axis MDM Narrative Medical decision making narrative: 51-year-old woman with a history of 3 days of upper epigastric radiating into the left lower quadrant abdominal pain with a sensation of food getting stuck with swallowing. She has been on 3 days of Nexium but is not noticing significant resolution. At this point she is not having food actually sticking nor she regurgitated undigested food. There is no evidence of acute coronary syndrome, pulmonary pathology on chest x-ray, and she had a relief briefly of her symptoms with a GI cocktail. She had complete resolution of her symptoms at that time. I suspect she is developing a distal esophageal stricture and would benefit from upper endoscopy. She is safe for discharge home at this point will refer her to [facility] for further evaluation Discharge Plan Departure Patient Disposition: Home Clinical Impression: Esophageal stricture Instructions: DI for Esophageal Stricture Activity Restrictions/Additional Instructions: Thank you for coming in today Your workup was very reassuring. There is no evidence of acute infection, heart attack or life-threatening findings to explain the pain that you are experiencing. With her description, I am concerned that your developing a stricture at the bottom of your esophagus and that is the pain that you are having. Please continue the Nexium that you currently are taking. Make sure that all of your foods are chewed well so there is no large boluses that her trying to go past the area You will need follow-up and likely benefit from upper endoscopy. Please contact [facility] at [phone] to schedule a consultation for probable esophageal stricture and probable upper endoscopy. If you have worsening symptoms or feel that food cannot pass into your stomach at all, please make sure you return to the emergency department Prescriptions: No Action No Known Home Medications 0RF
[2021-02-28] MEDS: MAG HYDROX/ALUMINUM/SIMETH SUS 20 ML, LIDOCAINE VISCOUS 2% 15 ML PO (13:20)
== END 2021-02-28 13:53 | disposition home or self-care (01) ==
PROVIDERS: Emergency Provider Emergency Medicine
DX: K22.2 Esophageal obstruction (principal)
CPT/HCPCS: 36415; 71045; 80053; 82550; 83690; 83735; 84484; 85007; 85025; 85610; 85730; 93005; 93010; 99284